=== PATIENT | female | born 1950 | race Two or more races ===

== ENCOUNTER → 2016-10-09 | Day surgery (SDC) | payer MEDICARE, OTHER ==
[~2016-10-09] VITALS: Ht 167.6 cm; Wt 87.5 kg
[~2016-10-09] MED LIST: ALBUAER3 IN; ANGIOMAX 250 MG VIAL IV ONE; ASP81EC PO; AZI250T PO; CAR3125T PO; FURO20TA PO; IOHEXOL 350 MG/ML 100ML IJ ONE; IPRAAER5 IN; LIDOCAINE 2%HCL (LOCAL ANESTH.) INJ 20ML MDV ONE; METH4PAK PO; MIDAZOLAM HCL 1MG/1ML-2 ML VIAL ONE; SODIUM CHL 0.9% 0 ML ONE; SPIR25TA89 OR; fentaNYL CITRATE 100 MCG/2 ML VL ONE
== END | disposition home or self-care (01) ==
LOC: CATH 10:53
PROVIDERS: ATTEND Internal Medicine Cardiovascular Disease
DX: I42.0 Dilated cardiomyopathy (principal); I50.9 Heart failure, unspecified; I20.9 Angina pectoris, unspecified; J44.9 Chronic obstructive pulmonary disease, unspecified; J43.9 Emphysema, unspecified; Z98.51 Tubal ligation status; Z87.891 Personal history of nicotine dependence
CPT/HCPCS: 93460; C1751; C1760; C1894; J1644; J2250; J3010; J7030; Q9967; 99152